=== PATIENT | male | born 1995 | race Two or more races ===

== ENCOUNTER 2025-04-19 14:22 | Emergency (ER) | payer BC, OTHER ==
[~2025-04-19] VITALS: Ht 170.2 cm; Wt 123.4 kg
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
[2025-04-19 15:29] VITALS: BP 151/89; PULSE 71; RESP 17; TEMP 98.4; O2SAT 96
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
== END 2025-04-19 16:22 | disposition home or self-care (01) ==
LOC: ER 14:25
DX: S60.551A Superficial foreign body of right hand, initial encounter (principal); Z90.49 Acquired absence of other specified parts of digestive tract; Z98.890 Other specified postprocedural states; W45.8XXA Other foreign body or object entering through skin, initial encounter; Y93.89 Activity, other specified; Y92.89 Other specified places as the place of occurrence of the external cause; Y99.8 Other external cause status
CPT/HCPCS: 73120